=== PATIENT | male | born 1950 | race Hispanic/Latino ===

== ENCOUNTER 2018-12-16 07:34 | Day surgery (SDC) | payer MEDICARE ==
--- NOTE | 2018-12-16 08:36 | Anesthesia Day of Surgery ---
Anesthesia Day of Surgery - Day of Surgery Patient Examined: Yes Patient H&P Reviewed: Yes Patient is NPO: Yes Beta Blockers: Yes
[2018-12-16] MEDS ORDERED: ONDANSETRON 4 MG/2 ML INJ IV PRN (08:39)
[2018-12-16] MEDS ORDERED: fentaNYL 100 MCG/2 ML INJ IV PRN (08:39)
--- NOTE | 2018-12-16 08:39 | Anesthesia Consultation ---
Anesthesia Consult and Med Hx Date of service: 12/16/18 - Airway Anesthetic Teeth Evaluation: Good ROM Head & Neck: Adequate (Pt has neck pain and extension is painful) Mental/Hyoid Distance: Adequate Mallampati Class: Class II Intubation Access Assessment: Probably Good - Pre-Operative Health Status ASA Pre-Surgery Classification: ASA2 Proposed Anesthetic Plan: General - Pulmonary Hx Smoking: Yes (STOPPED 1977) Hx Asthma: No Hx Sleep Apnea: No (JOON PRE SCREEN HIGH RISK) - Cardiovascular System Hx Hypertension: No (Can climb two flights of stairs) Hx Coronary Artery Disease: No (Pt reports negative cardiac work up) Hx Peripheral Vascular Disease: Yes (4.7 cm AAA-last checked six months ago. Stable per pt) - Central Nervous System Hx Neuromuscular Disorder: Yes (Inderal for migraines) Hx Seizures: No CVA: No Hx Psychiatric Problems: No - Gastrointestinal Hx Gastroesophageal Reflux Disease: Yes (Mild) - Endocrine Hx Renal Disease: Yes (Stones) Hx Non-Insulin Dependent Diabetes: No Hx Thyroid Disease: No - Hematic Hx Anemia: Yes (NOT RECENT) - Other Systems Hx Substance Use: No Hx Cancer: No Hx Obesity: No
[2018-12-16] MEDS ORDERED: ACETAMINOPHEN 325 MG TAB PO NR (08:40)
[2018-12-16] MEDS ORDERED: MORPHINE 2 MG/1 ML INJ IV NR (08:40)
[2018-12-16] MEDS ORDERED: CELECOXIB 200 MG CAP PO NR (09:00)
[2018-12-16] MEDS ORDERED: MIDAZOLAM 2 MG/2 ML INJ IV NR (09:00)
[2018-12-16] MEDS ORDERED: LACTATED RINGERS 1,000 ML IV SCH (09:00)
[2018-12-16] MEDS ORDERED: ONDANSETRON 4 MG/2 ML INJ ONE (09:06)
[2018-12-16] MEDS ORDERED: dexAMETHasone 20 MG/5 ML VIAL ONE (09:06)
[2018-12-16] MEDS ORDERED: LIDOCAINE MPF (2%) 20 MG/1 ML VIAL 5 ML ONE (09:06)
[2018-12-16] MEDS ORDERED: PROPOFOL 200 MG/20 ML VIAL IV ONE (09:07)
[2018-12-16] MEDS ORDERED: SUCCINYLCHOLINE CHLORIDE 200 MG/10 ML INJ MDV ONE (09:07)
[2018-12-16] MEDS ORDERED: fentaNYL 100 MCG/2 ML INJ ONE (09:07)
[2018-12-16] MEDS ORDERED: ceFAZolin/STERILE WATER 2 GM/20 ML SYRINGE IV NR (10:00)
[2018-12-16] MEDS ORDERED: WATER FOR IRRIG STERILE 1,500 ML BOTTLE IR ONE (10:14)
[2018-12-16] MEDS ORDERED: WATER FOR IRRIG STERILE 2000 ML IR ONE (10:14)
--- NOTE | 2018-12-16 10:42 | Post Operative Note ---
Date of procedure: 12/16/18 Pre-op diagnosis: stone Post-op diagnosis: same Findings: laser cysto rpg Procedure: cysto rpg laser Anesthesia: GETA Surgeon: CLARA GUERRERO Estimated blood loss: none Pathology: list (stone) Specimen disposition: to lab Condition: stable Disposition: PACU
--- NOTE | 2018-12-16 10:44 | Discharge Summary ---
Short Stay Discharge Plan Activity: other (no straining ) Weight Bearing Status: Full Weight Bearing Diet: low fat, low salt Special Instructions: other (inc fluids ) Follow up with: PRIMARY CARE, [Primary Care Provider] - 7 Days CLARA GUERRERO MD [Staff Physician] - 7 Days
--- NOTE | 2018-12-16 10:50 | Fluoroscopy Report ---
FLUOROSCOPY RETROGRADE UROGRAPHY HISTORY: Bladder stone. FINDINGS: 0.5 minutes of fluoroscopy time was provided by radiology during retrograde urography perfo rmed by the urologist. 9 fluoroscopic images are presented. Contrast opacifies normal-appearing renal collecting systems bilaterally. No filling defect or abnormal dilatation is identified. There is goo d drainage of both collecting systems on the final image. Please correlate with the procedural report as needed. IMPRESSION: Unremarkable bilateral retrograde pyelogram. Signer Name: Stew Tavera Jr, MD Signed: 12/16/2018 10:46 AM Workstation Name: [id number]
[2018-12-16 11:45] VITALS: BP 117/79
--- NOTE | 2018-12-16 12:43 | Post Anesthesia Evaluation ---
- Post Anesthesia Evaluation Patient Participated: Yes Airway Patent: Yes Stable Respiratory Function: Yes Nausea/Vomiting: No Temp > 96.8F: Yes Pain Manageable: Yes Adequeate Hydration: Yes Anesthesia Complications: No Block Receding Appropriately: Not Applicable Patient on Ventilator: No
--- NOTE | 2018-12-16 14:24 | Operative Report ---
PREOPERATIVE DIAGNOSIS: Ureteral and now bladder stone. POSTOPERATIVE DIAGNOSIS: Ureteral and now bladder stone. PROCEDURE: Cystoscopy, laser lithotripsy, cystolitholapaxy, retrograde. SURGEON: Dr. Lau. ANESTHESIA: General. FINDINGS: This is a gentleman with the stone and could not be extracted in the office and now presents for treatment. All risks and implications were discussed. DESCRIPTION OF PROCEDURE: The patient was brought to the operating room and placed on the operating table. Following the induction of anesthesia, placed in lithotomy position and prepped and draped in usual sterile fashion. At this point, a cystoscopy was performed and showed a stone at the bladder neck. There was lots of inflammation and increased vascularity in prostate, probably from the stone, intermittently obstructing the prostate and bladder neck. Stone was then placed in the bladder and using the 565 fiber, broken into multiple pieces. These were Ellik'd out and given to the patient. Retrograde showed J hooking and a large prostate with drainage. The patient tolerated the procedure well. No significant complications. A catheter was not left. He will need to drink fluids. Hopefully, we will not have to put one in. He was brought to recovery in stable condition. JOB# [id number] EDOUARD/LANCE
== END 2018-12-16 07:35 | disposition home or self-care (01) ==
LOC: OR 07:34
PROVIDERS: ATTEND Urology
DX: N21.0 Calculus in bladder (principal); N20.1 Calculus of ureter; G43.909 Migraine, unspecified, not intractable, without status migrainosus; I73.9 Peripheral vascular disease, unspecified; M19.90 Unspecified osteoarthritis, unspecified site; I10 Essential (primary) hypertension; K21.9 Gastro-esophageal reflux disease without esophagitis; Z98.890 Other specified postprocedural states; Z87.442 Personal history of urinary calculi; Z79.899 Other long term (current) drug therapy; Z87.891 Personal history of nicotine dependence; Z98.49 Cataract extraction status, unspecified eye; Z87.440 Personal history of urinary (tract) infections; Z86.2 Personal history of diseases of the blood and blood-forming organs and certain disorders involving the immune mechanism
CPT/HCPCS: 52317; 74420; A4217; J0330; J0690; J1100; J2250; J2270; J2405; J2704; J3010; J7120; Q9967; C1758